=== PATIENT | female | born 1970 | race Hispanic/Latino ===

== ENCOUNTER 2017-02-02 22:42 | Observation (INO) | payer OTHER ==
[~2017-02-02] VITALS: Ht 165.1 cm; Wt 72.9 kg
[~2017-02-02 22:42] MED LIST: Aspirin E.C. PO; FLEXERIL10 MG PO; MOTRIN600 MG PO; PRINZIDE 20-251 EACH PO; Tenoretic 50 PO
[2017-02-02 23:22] LABS: HEMATOCRIT 38.3 % (36.0-46.0); MCH 28.1 PG (29.0-34.0); MCHC 32.9 G/DL (30.0-36.0); MCV 85.3 FL (83-99); MEAN PLAT.VOLUME 9.6 uM^3 (9.5-12.4); PLATELET COUNT 299 K/uL (156-360); RBC DIS.WIDTH-CV 13.7 % (11.8-14.6); RBC DIS.WIDTH-SD 42.5 % (39-53); RED BLOOD COUNT 4.49 M/uL (3.80-5.20); WHITE BLOOD COUNT 4.4 K/uL (4.1-10.2)
[2017-02-02 23:31] LABS: CHLORIDE 104 mEq/L (99-109); POTASSIUM 3.3 mEq/L (3.7-5.4); SODIUM 143 mEq/L (136-147)
[2017-02-02 23:32] LABS: GLUCOSE 99 mg/dL (70-99)
[2017-02-02 23:35] LABS: ANION GAP 11 MEQ/L (2-14)
[2017-02-02 23:36] LABS: GFR ESTIMATE (CALCULATED) > 59 mL/min/
[2017-02-02 23:37] LABS: UREA NITROGEN (BUN) 7 mg/dL (9-23)
[2017-02-02 23:43] LABS: TROP-I INTERPRETATION NEGATIVE; TROPONIN-I < 0.01 ng/mL (0.0-0.30)
[2017-02-03 06:14] LABS: TROP-I INTERPRETATION NEGATIVE; TROPONIN-I < 0.01 ng/mL (0.0-0.30)
[2017-02-03 06:43] LABS: HDL CHOLESTEROL 49 MG/DL (Desirable>=50); LDL CHOLESTEROL 84 mg/dL (Desirable<100); NON-HDL CHOLESTEROL 98 mg/dL (Desirable<160); TOTAL CHOLESTEROL 147 mg/dL (Desirable<200); TRIGLYCERIDES 69 MG/DL (Normal: <150)
[2017-02-03 06:55] LABS: IRON 54 MCG/DL (35-150)
[2017-02-03 07:05] LABS: Estimated Average Glucose 111 mg/dL (70-123); HEMOGLOBIN A1c (GLYCOHEMOGLOB) 5.5 % HGB (Below 5.7)
[2017-02-03 07:40] VITALS: BP 129/86
[2017-02-03 08:18] LABS: FERRITIN 55 NG/ML (10-291)
[2017-02-03 11:25] VITALS: BP 116/74
[2017-02-03 12:11] LABS: TROP-I INTERPRETATION NEGATIVE; TROPONIN-I < 0.01 ng/mL (0.0-0.30)
[2017-02-03] MEDS ORDERED: NORVASC5 MG PO (15:32)
[2017-02-03 15:39] VITALS: BP 119/83
[2017-02-03] MEDS ORDERED: ANTIVERT25 MG PO (16:02)
== END 2017-02-03 18:47 | disposition home or self-care (01) ==
LOC: EME 22:42 → EDOF 02-03 04:48 → ENRESERV 02-03 04:49 → 5WEST 02-03 07:20
PROVIDERS: Physician Assistant
DX: R42 Dizziness and giddiness (principal); H81.90 Unspecified disorder of vestibular function, unspecified ear; I10 Essential (primary) hypertension; Z98.84 Bariatric surgery status; E87.6 Hypokalemia; I48.0 Paroxysmal atrial fibrillation; Z82.49 Family history of ischemic heart disease and other diseases of the circulatory system; Z83.3 Family history of diabetes mellitus; Z80.6 Family history of leukemia; Z90.710 Acquired absence of both cervix and uterus; Z79.82 Long term (current) use of aspirin
CPT/HCPCS: 70450; 70551; 71020; 80048; 80061; 82607; 82728; 82746; 83036; 83540; 84484; 85027; 93005; 93880; 99281; 99284; G0378; G8978 GP CH; G8979 GP CH; G8980 GP CH; J2060; J2405; J7030; J7040